=== PATIENT | male | born 1955 | race African-American/Black ===

== ENCOUNTER 2016-09-28 08:47 | Emergency (ER) | payer OTHER ==
[~2016-09-28] VITALS: Ht 185.4 cm; Wt 134.5 kg
[~2016-09-28 08:47] MED LIST: ACYC200C PO; ALLO100T PO; BENZ100 PO; FURO1TAB93 PO; HYDR-3535 PO; METF850T PO; MMW SWISH-SPIT; POTA10IN2 PO; PROT40TA PO
[2016-09-28 08:50] VITALS: BP 192/84; PULSE 84; RESP 15; TEMP 97.8; O2SAT 95
[2016-09-28] MEDS ORDERED: SODIUM CHLORIDE 0.9% FLUSH 10 ML FLUSH IV FLUSH PRN (09:30)
[2016-09-28] MEDS ORDERED: KETOROLAC TROMETHAMINE 30 MG/ML (IVP) VIAL IV PUSH ONE (10:15)
[2016-09-28] MEDS ORDERED: FURO1TAB60 PO (10:17)
[2016-09-28] MEDS ORDERED: POTA-243 PO (10:17)
[2016-09-28] MEDS ORDERED: ATOR40TA16 PO (10:17)
[2016-09-28] MEDS ORDERED: METF850T PO (10:17)
[2016-09-28] MEDS ORDERED: GABA100C4 PO ×2 (10:17)
[2016-09-28] MEDS ORDERED: ALLO100T PO (10:17)
[2016-09-28] MEDS ORDERED: PROT40TA PO (10:17)
[2016-09-28] MEDS ORDERED: HYDR-3535 PO (10:17)
[2016-09-28] MEDS ORDERED: FLUT50SP EACH NARE (10:18)
--- NOTE | 2016-09-28 11:05 | PD ---
HPI Chief Complaint: General Weakness Time Seen by Provider: 09:09 Travel History International Travel<30 days: No Contact w/Intl Traveler<30days: No Traveled to known affect area: No History of Present Illness HPI 61-year-old male arrives to the ER with a complaint of myalgias, insomnia, decreased appetite fever. He states "I feel like I was before." He has a history of CLL and was previously on chemotherapy however it was discontinued once his oncologist left the area evidently. He's had a cough. No nausea or vomiting reported. He's had no chest pain. Overall the history is somewhat vague PFSH Past Medical History Arthritis: Yes Autoimmune Disease: No Blood Disorders: No Anxiety: No Depression: No Heart Rhythm Problems: No Cancer: Yes (LEUKEMIA) Cardiovascular Problems: Yes High Cholesterol: No Chemotherapy: Yes Chest Pain: No Congestive Heart Failure: No Cerebrovascular Accident: Yes Diabetes: Yes Patient Takes Glucophage: Yes Diminished Hearing: No Endocrine: Yes Gastrointestinal Disorders: Yes (INGUINAL HERNIA) GERD: Yes Glaucoma: Yes Gout: Yes Genitourinary: No Headaches: Yes Hepatitis: Yes (HEP A OR B -- NOT SURE) Hiatal Hernia: No Hypertension: Yes Immune Disorder: No Inguinal Hernia: Yes Implanted Vascular Access Dvce: No Musculoskeletal: Yes Neurologic: No Psychiatric: No Reproductive: No Respiratory: No Immunizations Current: Yes Migraines: No 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) Radiation Therapy: No Seizures: No Thyroid Disease: No Ulcer: No Influenza Vaccination: No Past Surgical History Abdominal Surgery: Yes (HERNIA SURGERY ) AICD: No Appendectomy: Yes Body Medical Devices: LOWER BACK SCREWS Cardiac Surgery: No Cholecystectomy: Yes Ear Surgery: No Endocrine Surgery: No Eye Surgery: No Genitourinary Surgery: Yes (PENILE IMPLANT) Gynecologic Surgery: No Joint Replacement: No Neurologic Surgery: Yes (BACK SURGERY ) Pacemaker: No Prostatectomy: Yes Thoracic Surgery: No Other Surgery: Yes (RIGHT KNEE ARTHROSCOPY) Social History Alcohol Use: No Tobacco Use: No (QUIT LONG TIME AGO ) Substance Use: No Allergies-Medications (Allergen,Severity, Reaction): Coded Allergies: No Known Allergies (Verified , 09/28/16) Reported Meds & Prescriptions Reported Meds & Active Scripts Active Reported Fluticasone Nasal [place] 50 Mcg/Act Naspr 50 Mcg EACH NARE BID 50 mcg/spray Atorvastatin (Atorvastatin Calcium) 40 Mg Tab 40 Mg PO HS Gabapentin 100 Mg Cap 100 Mg PO TID Klor-Con 10 (Potassium Chloride) 10 Meq Tab 10 Meq PO DAILY Protonix (Pantoprazole Sodium) 40 Mg Tab 40 Mg PO DAILY Metformin (Metformin HCl) 850 Mg Tab 850 Mg PO DAILY With a meal Lasix (Furosemide) 40 Mg Tab 40 Mg PO DAILY Allopurinol 100 Mg Tab 100 Mg PO DAILY Lortab (Hydrocodone-Acetaminophen) 10-325 Mg Tab 1 Tab PO Q6H PRN Review of Systems Except as stated in HPI: all other systems reviewed are Neg General / Constitutional: Positive: Fever, Chills Physical Exam Narrative GENERAL: 61 yo old male pleasant no acute distress SKIN: Focused skin assessment warm/dry. HEAD: Atraumatic. Normocephalic. EYES: Pupils equal and round. No scleral icterus. No injection or drainage. ENT: No nasal bleeding or discharge. Mucous membranes pink and moist. NECK: Trachea midline. No JVD. CARDIOVASCULAR: Regular rate and rhythm. No murmur appreciated. RESPIRATORY: No accessory muscle use. Clear to auscultation. Breath sounds equal bilaterally. GASTROINTESTINAL: Abdomen soft, non-tender, nondistended. Hepatic and splenic margins not palpable. MUSCULOSKELETAL: No obvious deformities. No clubbing. No cyanosis. No edema. NEUROLOGICAL: Awake and alert. No obvious cranial nerve deficits. Motor grossly within normal limits. Normal speech. PSYCHIATRIC: Appropriate mood and affect; insight and judgment normal. Data Data Last Documented VS Vital Signs Date Time Temp Pulse Resp B/P Pulse Ox O2 Delivery O2 Flow Rate FiO2 09/28/16 12:45 100 09/28/16 08:50 97.8 84 15 192/84 Vital signs reviewed Orders Complete Blood Count With Diff (09/28/16 09:21) Iv Access Insert/Monitor (09/28/16 09:21) Ecg Monitoring (09/28/16 09:21) Oximetry (09/28/16 09:21) Sodium Chloride 0.9% Flush (Ns Flush) (09/28/16 09:30) Basic Metabolic Panel (Bmp) (09/28/16 09:21) Ketorolac Inj (Toradol Inj) (09/28/16 10:15) Labs Laboratory Tests Test 09/28/16 11:05 White Blood Count 31.5 TH/MM3 Red Blood Count 4.13 MIL/MM3 Hemoglobin 13.3 GM/DL Hematocrit 39.3 % Mean Corpuscular Volume 95.2 FL Mean Corpuscular Hemoglobin 32.2 PG Mean Corpuscular Hemoglobin 33.8 % Concent Red Cell Distribution Width 13.7 % Platelet Count 164 TH/MM3 Mean Platelet Volume 8.2 FL Neutrophils (%) (Auto) 18.9 % Lymphocytes (%) (Auto) 77.7 % Monocytes (%) (Auto) 2.8 % Eosinophils (%) (Auto) 0.1 % Basophils (%) (Auto) 0.5 % Neutrophils # (Auto) 6.0 TH/MM3 Lymphocytes # (Auto) 24.5 TH/MM3 Monocytes # (Auto) 0.9 TH/MM3 Eosinophils # (Auto) 0.0 TH/MM3 Basophils # (Auto) 0.2 TH/MM3 CBC Comment AUTO DIFF Differential Total Cells 100 Counted Neutrophils % (Manual) 20 % Lymphocytes % 78 % Monocytes % 1 % Eosinophils % 1 % Neutrophils # (Manual) 6.3 TH/MM3 Differential Comment FINAL DIFF MANUAL Platelet Estimate NORMAL Platelet Morphology Comment NORMAL Red Cell Morphology Comment NORMAL Sodium Level 138 MEQ/L Potassium Level 3.9 MEQ/L Chloride Level 104 MEQ/L Carbon Dioxide Level 28.2 MEQ/L Anion Gap 6 MEQ/L Blood Urea Nitrogen 11 MG/DL Creatinine 1.03 MG/DL Estimat Glomerular Filtration 89 ML/MIN Rate Random Glucose 75 MG/DL Calcium Level 9.3 MG/DL [facility] Medical Decision Making Medical Screen Exam Complete: Yes Emergency Medical Condition: Yes Medical Record Reviewed: Yes Differential Diagnosis CLL, electrolyte imbalance, anemia Narrative Course CBC & BMP Diagram 09/28/16 11:05 The patient is resting comfortably and feels better, is alert and in no distress. The patients results and examination findings were discussed. The repeat examination is unremarkable and benign. The history, exam, diagnostic testing, and current condition do not suggest any significant pathology to warrant further testing, continued ED treatment, admission, or surgical evaluation at this point. The vital signs have been stable. The patient does not have uncontrollable pain, intractable vomiting, or other significant symptoms. The patient's condition is stable and appropriate for discharge. The patient will pursue further outpatient evaluation with a primary care physician or other designated or consulting physician as indicated in the discharge instructions. The patient expressed understanding and was agreeable with this plan. Diagnosis Primary Impression: CLL (chronic lymphocytic leukemia) Additional Impressions: Generalized weakness Myalgia Referrals: Oncologist 2 days Additional Instructions: You have a choice when it comes to health care, and we are glad that you chose [facility]. Hopefully, we have met your expectations on today's visit. You are welcome to return to [facility] at any time, as we are committed to meeting the health care needs of our community. Med/Other Pt SpecificInfo: No Change to Meds Disposition: 01 DISCHARGE HOME Condition: Pino Braun MD Sep 28, 2016 11:05
[2016-09-28 11:26] LABS: BASOPHIL # 0.2 TH/MM3 (0-0.2); BASOPHIL % 0.5 % (0.0-2.0); EOSINOPHIL % 0.1 % (0.0-4.0); HEMATOCRIT 39.3 % (39.0-51.0); LYMPH % 77.7 % (9.0-44.0); LYMPHOCYTE # 24.5 TH/MM3 (1.0-4.8); MEAN CELL VOLUME 95.2 FL (80.0-100.0); MEAN CORPUSCULAR HEMOGLOBIN 32.2 PG (27.0-34.0); MEAN CORPUSCULAR HGB CONC 33.8 % (32.0-36.0); MONO % 2.8 % (0.0-8.0); NEUT % 18.9 % (16.0-70.0); PLATELET COUNT 164 TH/MM3 (150-450); RED BLOOD COUNT 4.13 MIL/MM3 (4.50-5.90); RED CELL DISTRIBUTION WIDTH 13.7 % (11.6-17.2); WHITE BLOOD COUNT 31.5 TH/MM3 (4.0-11.0)
[2016-09-28 11:27] LABS: HEMO FLAGS AUTO DIFF
[2016-09-28 11:47] LABS: BICARBONATE 28.2 MEQ/L (21.0-32.0); POTASSIUM 3.9 MEQ/L (3.5-5.1)
[2016-09-28 11:59] LABS: EOSINOPHILS 1 % (0-4); NEUTROPHIL # MANUAL DIFF 6.3 TH/MM3 (1.8-7.7); PLATELET ESTIMATE SMEAR NORMAL (NORMAL); PLATELET MORPHOLOGY NORMAL (NORMAL); POLYS (SEG NEUTROPHILS) 20 % (16-70); SCAN/DIFF FINAL DIFF MANUAL; WBC DIFF SAMPLE 100
== END 2016-09-28 12:50 | disposition home or self-care (01) ==
LOC: NEPC 08:47
DX: R50.9 Fever, unspecified (principal); E11.9 Type 2 diabetes mellitus without complications; M19.90 Unspecified osteoarthritis, unspecified site; I10 Essential (primary) hypertension; C95.91 Leukemia, unspecified, in remission; Z79.4 Long term (current) use of insulin; Z86.73 Personal history of transient ischemic attack (TIA), and cerebral infarction without residual deficits
CPT/HCPCS: 80048; 85007; 85027; 96374; 99284; J1885

== ENCOUNTER 2017-05-08 18:06 | Emergency (ER) | payer OTHER ==
[~2017-05-08] VITALS: Ht 185.4 cm; Wt 130.0 kg
[~2017-05-08 18:06] MED LIST changes: -ACYC200C PO; +ATOR40TA16 PO; -BENZ100 PO; +FLUT50SP EACH NARE; +FURO1TAB60 PO; -FURO1TAB93 PO; +GABA100C4 PO; +KLOR10TA PO; -MMW SWISH-SPIT; -POTA10IN2 PO
[2017-05-08 18:08] VITALS: BP 154/84; PULSE 107; RESP 16; TEMP 99.2; O2SAT 99
--- NOTE | 2017-05-08 19:09 | PD ---
HPI Chief Complaint: Cold / Flu Symptoms Time Seen by Provider: 18:58 Travel History International Travel<30 days: No Contact w/Intl Traveler<30days: No Traveled to known affect area: No History of Present Illness HPI 61-year-old male presents to emergency department complaining of cough cold symptoms for approximately 1-2 days. States that he has felt feverish and had a decreased appetite secondary to his upper respiratory symptoms. Patient states he has also developed a mild headache with decreased sleep because of his symptoms. Patient states that he does see a pain management doctor for his chronic low back pain, has diabetes, and has been treated for leukemia. His oncologist is Dr. Aguilar. He is due to follow-up with his primary care physician this week. Patient states that he feels a little run down and has an upset stomach secondary to take his medication without eating. States he has had some nonbloody diarrhea. Denies nausea or vomiting. Patient has a nonproductive cough. Denies chest pain, shortness of breath, abdominal pain, or urinary discomfort. PFSH Past Medical History Arthritis: Yes Autoimmune Disease: No Blood Disorders: No Anxiety: No Depression: No Heart Rhythm Problems: No Cancer: Yes (LEUKEMIA) Cardiovascular Problems: Yes High Cholesterol: No Chemotherapy: Yes Chest Pain: No Congestive Heart Failure: No Cerebrovascular Accident: Yes Diabetes: Yes Diminished Hearing: No Endocrine: Yes Gastrointestinal Disorders: Yes (INGUINAL HERNIA) GERD: Yes Glaucoma: Yes Gout: Yes Genitourinary: No Headaches: Yes Hepatitis: Yes (HEP A OR B -- NOT SURE) Hiatal Hernia: No Hypertension: Yes Immune Disorder: No Inguinal Hernia: Yes Implanted Vascular Access Dvce: No Musculoskeletal: Yes Neurologic: No Psychiatric: No Reproductive: No Respiratory: No Immunizations Current: Yes Migraines: No 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) Radiation Therapy: No Seizures: No Thyroid Disease: No Ulcer: No Past Surgical History Abdominal Surgery: Yes (HERNIA SURGERY ) AICD: No Appendectomy: Yes Body Medical Devices: LOWER BACK SCREWS Cardiac Surgery: No Cholecystectomy: Yes Ear Surgery: No Endocrine Surgery: No Eye Surgery: No Genitourinary Surgery: Yes (PENILE IMPLANT) Gynecologic Surgery: No Joint Replacement: No Neurologic Surgery: Yes (BACK SURGERY ) Pacemaker: No Prostatectomy: Yes Thoracic Surgery: No Other Surgery: Yes (RIGHT KNEE ARTHROSCOPY) Social History Alcohol Use: No Tobacco Use: No (QUIT LONG TIME AGO ) Substance Use: No Allergies-Medications (Allergen,Severity, Reaction): Coded Allergies: No Known Allergies (Verified , 09/28/16) Reported Meds & Prescriptions Reported Meds & Active Scripts Active Reported Fluticasone Nasal [place] 50 Mcg/Act Naspr 50 Mcg EACH NARE BID 50 mcg/spray Atorvastatin (Atorvastatin Calcium) 40 Mg Tab 40 Mg PO HS Gabapentin 100 Mg Cap 100 Mg PO TID Klor-Con 10 (Potassium Chloride) 10 Meq Tab 10 Meq PO DAILY Protonix (Pantoprazole Sodium) 40 Mg Tab 40 Mg PO DAILY Metformin (Metformin HCl) 850 Mg Tab 850 Mg PO DAILY With a meal Lasix (Furosemide) 40 Mg Tab 40 Mg PO DAILY Allopurinol 100 Mg Tab 100 Mg PO DAILY Lortab (Hydrocodone-Acetaminophen) 10-325 Mg Tab 1 Tab PO Q6H PRN Review of Systems Except as stated in HPI: all other systems reviewed are Neg Physical Exam Narrative GENERAL: Well-nourished, well-developed patient. SKIN: Focused skin assessment warm/dry. HEAD: Normocephalic. EYES: No scleral icterus. No injection or drainage. THROAT: No pharyngeal injection. Questionable exudates. Tonsillar hypertrophy present(patient states this is chronic.). Airway is patent. NECK: Supple, trachea midline. No JVD or lymphadenopathy. CARDIOVASCULAR: Regular rate and rhythm without murmurs, gallops, or rubs. RESPIRATORY: Breath sounds equal bilaterally. No accessory muscle use. GASTROINTESTINAL: Abdomen soft, non-tender, nondistended. MUSCULOSKELETAL: No cyanosis, or edema. BACK: Nontender without obvious deformity. No CVA tenderness. Data Data Last Documented VS Vital Signs Date Time Temp Pulse Resp B/P (MAP) Pulse Ox O2 Delivery O2 Flow Rate FiO2 05/08/17 22:45 05/08/17 19:49 98 Room Air 05/08/17 19:47 89 16 05/08/17 18:08 99.2 Orders Orders Influenzae A/B Antigen (05/08/17 19:05) Group A Rapid Strep Screen (05/08/17 19:05) Sodium Chlor 0.9% 1000 Ml Inj (Ns 1000 M (05/08/17 19:15) Strep Culture (Group A) (05/08/17 19:45) Ed Discharge Order (05/08/17 21:29) MDM Medical Decision Making Medical Screen Exam Complete: Yes Emergency Medical Condition: Yes Differential Diagnosis Viral syndrome versus upper respiratory infection allergic rhinitis Narrative Course 61-year-old male presents to emergency department complaining of cough cold symptoms for approximately 1-2 days. States that he has felt feverish and had a decreased appetite secondary to his upper respiratory symptoms. Patient states he has also developed a mild headache with decreased sleep because of his symptoms. Patient states that he feels a little run down and has an upset stomach secondary to take his medication without eating. States he has had some nonbloody diarrhea but this is not out of the ordinary for patient. Denies nausea or vomiting. Patient has a nonproductive cough. Denies chest pain , shortness of breath, abdominal pain, or urinary discomfort. Patient states that he does see a pain management doctor for his chronic low back pain, has diabetes, and has been treated for leukemia. His oncologist is Dr. Aguilar. He is due to follow-up with his primary care physician this week. Vital signs stable. Physical exam- tonsillar hypertrophy is apparently normal for patient, no exudate or injection of pharynx. no lymphadenopathy. lungs clear. Abd SNT. Essentially unremarkable. An extended amount of time was required for IVF administration and IV access. Patient received a 1 L IV NS challenge for decreased oral intake and feeling fatigued. Encouraged pt to drink water throughout the stay as well. POC Glucose 116. PO challenge successful. Pt feels better, will be discharged. Advised to use tylenol or motrin for headache symptoms. Benedryl for allergy or sleep disturbances. Healthy diabetic diet with plenty of fluid intake. Strongly advised pt to follow up with PCP and Oncologist within 3 days. Diagnosis Primary Impression: Viral syndrome Referrals: Primary Care Physician Additional Instructions: Take Benadryl at night for sleep and your symptoms. Continue to hydrate and have a nutritious diet. Follow-up with her primary care physician within 2-3 days. If her symptoms persist or worsen return to the emergency department. Disposition: 01 DISCHARGE HOME Condition: Stable Inés Venegas May 08, 2017 19:09
[2017-05-08] MEDS ORDERED: SODIUM CHLOR 0.9% 1000 ML INJ 1,000 ML IV ONE (19:15)
[2017-05-08 19:47] VITALS: BP 117/72; PULSE 89; RESP 16; O2SAT 96
== END 2017-05-08 22:55 | disposition home or self-care (01) ==
LOC: NEPD 18:06
DX: B34.9 Viral infection, unspecified (principal); M19.90 Unspecified osteoarthritis, unspecified site; E11.9 Type 2 diabetes mellitus without complications; K21.9 Gastro-esophageal reflux disease without esophagitis; M10.9 Gout, unspecified; I10 Essential (primary) hypertension; Z87.19 Personal history of other diseases of the digestive system; Z79.899 Other long term (current) drug therapy; Z86.73 Personal history of transient ischemic attack (TIA), and cerebral infarction without residual deficits
CPT/HCPCS: 87081; 87804; 87880; 96360; 96361; 99284; J7030

== ENCOUNTER 2017-09-01 19:51 | Emergency (ER) | payer OTHER ==
[2017-09-01 20:01] VITALS: BP 186/83; PULSE 97; RESP 18; TEMP 98.1; O2SAT 97
--- NOTE | 2017-09-01 22:11 | PD ---
HPI Chief Complaint: Diabetic Time Seen by Provider: 20:00 Travel History International Travel<30 days: No Contact w/Intl Traveler<30days: No Traveled to known affect area: No PFSH Past Medical History Arthritis: Yes Autoimmune Disease: No Blood Disorders: No Anxiety: No Depression: No Heart Rhythm Problems: No Cancer: Yes (LEUKEMIA) Cardiovascular Problems: Yes High Cholesterol: No Chemotherapy: Yes Chest Pain: No Congestive Heart Failure: No Cerebrovascular Accident: Yes Diabetes: Yes Diminished Hearing: No Endocrine: Yes Gastrointestinal Disorders: Yes (INGUINAL HERNIA) GERD: Yes Glaucoma: Yes Gout: Yes Genitourinary: No Headaches: Yes Hepatitis: Yes (HEP A OR B -- NOT SURE) Hiatal Hernia: No Hypertension: Yes Immune Disorder: No Inguinal Hernia: Yes Implanted Vascular Access Dvce: No Musculoskeletal: Yes Neurologic: No Psychiatric: No Reproductive: No Respiratory: No Immunizations Current: Yes Migraines: No 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) Radiation Therapy: No Seizures: No Thyroid Disease: No Ulcer: No Past Surgical History Abdominal Surgery: Yes (HERNIA SURGERY ) AICD: No Appendectomy: Yes Body Medical Devices: LOWER BACK SCREWS Cardiac Surgery: No Cholecystectomy: Yes Ear Surgery: No Endocrine Surgery: No Eye Surgery: No Genitourinary Surgery: Yes (PENILE IMPLANT) Gynecologic Surgery: No Joint Replacement: No Neurologic Surgery: Yes (BACK SURGERY ) Pacemaker: No Prostatectomy: Yes Thoracic Surgery: No Other Surgery: Yes (RIGHT KNEE ARTHROSCOPY) Social History Alcohol Use: No Tobacco Use: No (QUIT LONG TIME AGO ) Substance Use: No Allergies-Medications (Allergen,Severity, Reaction): Coded Allergies: No Known Allergies (Verified , 09/28/16) Reported Meds & Prescriptions Reported Meds & Active Scripts Active Reported Glipizide 5 Mg Tab 5 Mg PO BID Take 30 minutes before a meal Hydrocodone-Acetaminophen 10-325 mg Tab 1 Tab PO Q6H PRN Fluticasone Nasal [place] 50 Mcg/Act Naspr 50 Mcg EACH NARE BID 50 mcg/spray Atorvastatin (Atorvastatin Calcium) 40 Mg Tab 40 Mg PO HS Gabapentin 100 Mg Cap 100 Mg PO TID Klor-Con 10 (Potassium Chloride) 10 Meq Tab 10 Meq PO DAILY Protonix (Pantoprazole Sodium) 40 Mg Tab 40 Mg PO DAILY Metformin (Metformin HCl) 850 Mg Tab 850 Mg PO DAILY With a meal Lasix (Furosemide) 40 Mg Tab 40 Mg PO DAILY Allopurinol 100 Mg Tab 100 Mg PO DAILY Data Data Last Documented VS Vital Signs Date Time Temp Pulse Resp B/P (MAP) Pulse Ox O2 Delivery O2 Flow Rate FiO2 09/01/17 20:01 98.1 97 18 186/83 (117) 97 Orders Orders Blood Glucose (09/01/17 20:03) Electrocardiogram (09/02/17 02:36) Complete Blood Count With Diff (09/02/17 02:36) Comprehensive Metabolic Panel (09/02/17 02:36) Creatine Kinase (Cpk) (09/02/17 02:36) Ckmb (Isoenzyme) Profile (09/02/17 02:36) Troponin I (09/02/17 02:36) B-Type Natriuretic Peptide (09/02/17 02:36) Prothrombin Time / Inr (Pt) (09/02/17 02:36) Act Partial Throm Time (Ptt) (09/02/17 02:36) Lipase (09/02/17 02:36) Urinalysis - C+S If Indicated (09/02/17 02:36) Thyroid Stimulating Hormone (09/02/17 02:36) Chest, Single Ap (09/02/17 02:36) Iv Access Insert/Monitor (09/02/17 02:36) Ecg Monitoring (09/02/17 02:36) Oximetry (09/02/17 02:36) Acetamin-Hydrocod 325-5 Mg ([place] 5-325 (09/02/17 03:30) CKMB (09/02/17 02:45) CKMB% (09/02/17 02:45) Labs Laboratory Tests Test 09/02/17 02:45 09/02/17 03:00 White Blood Count 76.5 TH/MM3 Red Blood Count 4.21 MIL/MM3 Hemoglobin 13.3 GM/DL Hematocrit 40.9 % Mean Corpuscular Volume 97.1 FL Mean Corpuscular Hemoglobin 31.5 PG Mean Corpuscular Hemoglobin Concent 32.4 % Red Cell Distribution Width 13.7 % Platelet Count 184 TH/MM3 Mean Platelet Volume 8.3 FL Neutrophils (%) (Auto) 8.5 % Lymphocytes (%) (Auto) 89.2 % Monocytes (%) (Auto) 1.8 % Eosinophils (%) (Auto) 0.2 % Basophils (%) (Auto) 0.3 % Neutrophils # (Auto) 6.5 TH/MM3 Lymphocytes # (Auto) 68.3 TH/MM3 Monocytes # (Auto) 1.4 TH/MM3 Eosinophils # (Auto) 0.1 TH/MM3 Basophils # (Auto) 0.2 TH/MM3 CBC Comment AUTO DIFF Differential Total Cells Counted 100 Neutrophils % (Manual) 10 % Lymphocytes % 89 % Eosinophils % 1 % Neutrophils # (Manual) 7.7 TH/MM3 Differential Comment FINAL DIFF MANUAL Atypical Lymphocytes % Smudge Cells PRESENT Platelet Estimate NORMAL Platelet Morphology Comment NORMAL Red Cell Morphology Comment NORMAL Prothrombin Time 10.3 SEC Prothromb Time International Ratio 1.0 RATIO Activated Partial Thromboplast Time 25.0 SEC Blood Urea Nitrogen 12 MG/DL Creatinine 0.91 MG/DL Random Glucose 102 MG/DL Total Protein 7.8 GM/DL Albumin 4.0 GM/DL Calcium Level 8.8 MG/DL Alkaline Phosphatase 81 U/L Aspartate Amino Transf (AST/SGOT) 15 U/L Alanine Aminotransferase (ALT/SGPT) 18 U/L Total Bilirubin 0.5 MG/DL Sodium Level 142 MEQ/L Potassium Level 4.4 MEQ/L Chloride Level 105 MEQ/L Carbon Dioxide Level 28.2 MEQ/L Anion Gap 9 MEQ/L Estimat Glomerular Filtration Rate 103 ML/MIN Total Creatine Kinase 354 U/L Creatine Kinase MB LESS THAN 0.5 NG/ML Creatine Kinase MB % 0.1 % Troponin I LESS THAN 0.02 NG/ML B-Type Natriuretic Peptide LESS THAN 2 PG/ML Lipase 371 U/L Thyroid Stimulating Hormone 3rd Gen 1.310 uIU/ML Urine Color LIGHT-YELLOW Urine Turbidity CLEAR Urine pH 7.5 Urine Specific [place] 1.010 Urine Protein NEG mg/dL Urine Glucose (UA) NEG mg/dL Urine Ketones NEG mg/dL Urine Occult Blood NEG Urine Nitrite NEG Urine Bilirubin NEG Urine Urobilinogen LESS THAN 2.0 MG/DL Urine Leukocyte Esterase TRACE Urine RBC LESS THAN 1 /hpf Urine WBC 2 /hpf Urine Squamous Epithelial Cells <1 /hpf Microscopic Urinalysis Comment CULT NOT INDICATED Barb Ashford Sep 01, 2017 22:11
--- NOTE | 2017-09-02 02:38 | PD ---
HPI Chief Complaint: Diabetic Time Seen by Provider: 02:33 Travel History International Travel<30 days: No Contact w/Intl Traveler<30days: No Traveled to known affect area: No History of Present Illness HPI The patient is a 62 year old male who presents to the [facility] emergency department with a history of lower than usual blood sugars throughout the day today. He reports that in spite of eating various sweet substances his sugar continued to go up shortly and then fall again. He reports that his blood sugar was as low as 76. He reports that he is on glipizide and metformin. His primary care physician is Dr. Sanchez. He denies any recent changes in his medication regimen. He reports that he is also followed by Dr. Aguilar, a local oncologist for chronic lymphocytic leukemia. He is not on any chemotherapy currently for this. He reports that he did have a decreased appetite this evening. He reports that he did eat dinner. The patient reports that he gets symptomatic when his blood sugar drops below 100. He reports that he feels shaky and nauseated. On review of systems, he denies having any recent fevers, cough or congestion, cough, congestion, neck pain, chest pain, shortness of breath, abdominal pain, vomiting, diarrhea, urinary symptoms, or other neurologic symptoms. The patient incidentally also reports having worsening lower extremity edema over the last 2 days. He denies having any calf pain or erythema. He denies having any prior history of DVT or PE. [facility] Past Medical History Narrative Medical The patient's past medical history is significant for COPD, diabetes mellitus, acid reflux, gout, hyperlipidemia, hypertension, chronic kidney disease, history of chronic lymphocytic leukemia, obesity. Arthritis: Yes Autoimmune Disease: No Blood Disorders: No Anxiety: No Depression: No Heart Rhythm Problems: No Cancer: Yes (LEUKEMIA) Cardiovascular Problems: Yes High Cholesterol: No Chemotherapy: Yes Chest Pain: No Congestive Heart Failure: No Cerebrovascular Accident: Yes Diabetes: Yes Diminished Hearing: No Endocrine: Yes Gastrointestinal Disorders: Yes (INGUINAL HERNIA) GERD: Yes Glaucoma: Yes Gout: Yes Genitourinary: No Headaches: Yes Hepatitis: Yes (HEP A OR B -- NOT SURE) Hiatal Hernia: No Hypertension: Yes Immune Disorder: No Inguinal Hernia: Yes Implanted Vascular Access Dvce: No Musculoskeletal: Yes Neurologic: No Psychiatric: No Reproductive: No Respiratory: No Immunizations Current: Yes Migraines: No 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) Radiation Therapy: No Seizures: No Thyroid Disease: No Ulcer: No Past Surgical History Narrative Surgical The patient's past surgical history is significant for an appendectomy, back surgery, cholecystectomy, hernia repair, penile implant, port placement, colonoscopy. Abdominal Surgery: Yes (HERNIA SURGERY ) AICD: No Appendectomy: Yes Body Medical Devices: LOWER BACK SCREWS Cardiac Surgery: No Cholecystectomy: Yes Ear Surgery: No Endocrine Surgery: No Eye Surgery: No Genitourinary Surgery: Yes (PENILE IMPLANT) Gynecologic Surgery: No Joint Replacement: No Neurologic Surgery: Yes (BACK SURGERY ) Pacemaker: No Prostatectomy: Yes Thoracic Surgery: No Other Surgery: Yes (RIGHT KNEE ARTHROSCOPY) Social History Alcohol Use: No Tobacco Use: No (QUIT LONG TIME AGO ) Substance Use: No Allergies-Medications (Allergen,Severity, Reaction): Coded Allergies: No Known Allergies (Verified , 09/28/16) Reported Meds & Prescriptions Reported Meds & Active Scripts Active Reported Glipizide 5 Mg Tab 5 Mg PO BID Take 30 minutes before a meal Hydrocodone-Acetaminophen 10-325 mg Tab 1 Tab PO Q6H PRN Fluticasone Nasal [place] 50 Mcg/Act Naspr 50 Mcg EACH NARE BID 50 mcg/spray Atorvastatin (Atorvastatin Calcium) 40 Mg Tab 40 Mg PO HS Gabapentin 100 Mg Cap 100 Mg PO TID Klor-Con 10 (Potassium Chloride) 10 Meq Tab 10 Meq PO DAILY Protonix (Pantoprazole Sodium) 40 Mg Tab 40 Mg PO DAILY Metformin (Metformin HCl) 850 Mg Tab 850 Mg PO DAILY With a meal Lasix (Furosemide) 40 Mg Tab 40 Mg PO DAILY Allopurinol 100 Mg Tab 100 Mg PO DAILY Review of Systems Except as stated in HPI: all other systems reviewed are Neg General / Constitutional: No: Fever Eyes: No: Visual changes HENT: No: Headaches Cardiovascular: No: Chest Pain or Discomfort Respiratory: No: Shortness of Breath Gastrointestinal: Positive: Nausea, Loss of Appetite, No: Vomiting, Diarrhea, Abdominal Pain Genitourinary: No: Dysuria Musculoskeletal: No: Pain Skin: No Rash Neurologic: Positive: Weakness (Generalized weakness), No: Focal Abnormalities , Change in Mentation, Slurred Speech, Sensory Disturbance Psychiatric: No: Depression Endocrine: No: Polydipsia Hematologic/Lymphatic: No: Easy Bruising Physical Exam Narrative General: The patient is a well-developed well-nourished male in no acute distress. Head and Neck exam: Head is normocephalic atraumatic. Eyes: EOMI, pupils are equal round and reactive to light. Nose: Midline septum with pink mucous membranes Mouth: Dentition unremarkable. Moist mucus membranes. Posterior oropharynx is not erythematous. No tonsillar hypertrophy. Uvula midline. Airway patent. Neck: No palpable lymphadenopathy. No nuchal rigidity. No thyromegaly. Cardiovascular: Regular rate and rhythm without murmurs, gallops, or rubs. Lungs: Clear to auscultation bilaterally. No wheezes, rhonchi, or rales. Abdomen: Soft, without tenderness to palpation in all 4 quadrants of the abdomen. No guarding, rebound, or rigidity. Normal bowel sounds are audible. No tenderness on palpation of McBurney's point. Negative Suarez sign. Extremities: No clubbing or cyanosis. The patient has trace pedal edema bilateral lower extremities. No calf tenderness on palpation. Negative Homans sign. No palpable cords. 2+ pulses in all 4 extremities. Back: No spinous process tenderness to palpation. No costovertebral angle tenderness to palpation. Neurologic Exam: Grossly nonfocal. Skin Exam: No rash noted. Intact skin that is warm and dry. Data Data Last Documented VS Vital Signs Date Time Temp Pulse Resp B/P (MAP) Pulse Ox O2 Delivery O2 Flow Rate FiO2 09/01/17 20:01 98.1 97 18 186/83 (117) 97 Orders Orders Blood Glucose (09/01/17 20:03) Electrocardiogram (09/02/17 02:36) Complete Blood Count With Diff (09/02/17 02:36) Comprehensive Metabolic Panel (09/02/17 02:36) Creatine Kinase (Cpk) (09/02/17 02:36) Ckmb (Isoenzyme) Profile (09/02/17 02:36) Troponin I (09/02/17 02:36) B-Type Natriuretic Peptide (09/02/17 02:36) Prothrombin Time / Inr (Pt) (09/02/17 02:36) Act Partial Throm Time (Ptt) (09/02/17 02:36) Lipase (09/02/17 02:36) Urinalysis - C+S If Indicated (09/02/17 02:36) Thyroid Stimulating Hormone (09/02/17 02:36) Chest, Single Ap (09/02/17 02:36) Iv Access Insert/Monitor (09/02/17 02:36) Ecg Monitoring (09/02/17 02:36) Oximetry (09/02/17 02:36) Acetamin-Hydrocod 325-5 Mg ([place] 5-325 (09/02/17 03:30) CKMB (09/02/17 02:45) CKMB% (09/02/17 02:45) Labs Laboratory Tests Test 09/02/17 02:45 09/02/17 03:00 White Blood Count 76.5 TH/MM3 Red Blood Count 4.21 MIL/MM3 Hemoglobin 13.3 GM/DL Hematocrit 40.9 % Mean Corpuscular Volume 97.1 FL Mean Corpuscular Hemoglobin 31.5 PG Mean Corpuscular Hemoglobin Concent 32.4 % Red Cell Distribution Width 13.7 % Platelet Count 184 TH/MM3 Mean Platelet Volume 8.3 FL Neutrophils (%) (Auto) 8.5 % Lymphocytes (%) (Auto) 89.2 % Monocytes (%) (Auto) 1.8 % Eosinophils (%) (Auto) 0.2 % Basophils (%) (Auto) 0.3 % Neutrophils # (Auto) 6.5 TH/MM3 Lymphocytes # (Auto) 68.3 TH/MM3 Monocytes # (Auto) 1.4 TH/MM3 Eosinophils # (Auto) 0.1 TH/MM3 Basophils # (Auto) 0.2 TH/MM3 CBC Comment AUTO DIFF Differential Total Cells Counted 100 Neutrophils % (Manual) 10 % Lymphocytes % 89 % Eosinophils % 1 % Neutrophils # (Manual) 7.7 TH/MM3 Differential Comment FINAL DIFF MANUAL Atypical Lymphocytes % Smudge Cells PRESENT Platelet Estimate NORMAL Platelet Morphology Comment NORMAL Red Cell Morphology Comment NORMAL Prothrombin Time 10.3 SEC Prothromb Time International Ratio 1.0 RATIO Activated Partial Thromboplast Time 25.0 SEC Blood Urea Nitrogen 12 MG/DL Creatinine 0.91 MG/DL Random Glucose 102 MG/DL Total Protein 7.8 GM/DL Albumin 4.0 GM/DL Calcium Level 8.8 MG/DL Alkaline Phosphatase 81 U/L Aspartate Amino Transf (AST/SGOT) 15 U/L Alanine Aminotransferase (ALT/SGPT) 18 U/L Total Bilirubin 0.5 MG/DL Sodium Level 142 MEQ/L Potassium Level 4.4 MEQ/L Chloride Level 105 MEQ/L Carbon Dioxide Level 28.2 MEQ/L Anion Gap 9 MEQ/L Estimat Glomerular Filtration Rate 103 ML/MIN Total Creatine Kinase 354 U/L Creatine Kinase MB LESS THAN 0.5 NG/ML Creatine Kinase MB % 0.1 % Troponin I LESS THAN 0.02 NG/ML B-Type Natriuretic Peptide LESS THAN 2 PG/ML Lipase 371 U/L Thyroid Stimulating Hormone 3rd Gen 1.310 uIU/ML Urine Color LIGHT-YELLOW Urine Turbidity CLEAR Urine pH 7.5 Urine Specific [place] 1.010 Urine Protein NEG mg/dL Urine Glucose (UA) NEG mg/dL Urine Ketones NEG mg/dL Urine Occult Blood NEG Urine Nitrite NEG Urine Bilirubin NEG Urine Urobilinogen LESS THAN 2.0 MG/DL Urine Leukocyte Esterase TRACE Urine RBC LESS THAN 1 /hpf Urine WBC 2 /hpf Urine Squamous Epithelial Cells <1 /hpf Microscopic Urinalysis Comment CULT NOT INDICATED MDM Medical Decision Making Medical Screen Exam Complete: Yes Emergency Medical Condition: Yes Medical Record Reviewed: Yes Interpretation(s) Last Impressions Chest X-Ray 09/02/17 0236 Signed Impressions: Service Date/Time: Saturday, September 02, 2017 02:47 - CONCLUSION: The lungs are clear. Mark Gallegos MD Differential Diagnosis Poor p.o. intake causing hypoglycemia, versus increased sensitivity to glipizide. Narrative Course During the course of the patient's emergency department visit, the patient's history, examination, and differential diagnosis were reviewed with the patient. The patient was placed on a quality assurance monitor with oximetry and frequent blood pressure monitoring. The patient had IV access obtained and blood work sent for analysis. The patient had a EKG done on arrival. The patient's EKG shows a sinus rhythm heart rate of 74, QRS duration is 100 ms, QTC 400 ms. The patient was initially provided Lortab 5 mg p.o. 1 as the patient reports that he last took his Lortab 10 hours ago and takes it every 6-8 hours for chronic back pain. The patient's laboratory studies were reviewed and remarkable for a white count of 76.5 which is comparable to a prior white count of 77.6 on August 25, hemoglobin 13.3, platelets 184 with 10 neutrophils, 89 lymphocytes. CMP is unremarkable. Cardiac enzymes within normal limits. BNP is less than 2. TSH within normal limits. Urinalysis is unremarkable. Radiology studies were reviewed and remarkable for a chest x-ray that shows no acute cardiopulmonary disease. Regarding the patient's lower extremity edema, the patient has a reported history of poorly sleeping over the last month. We did discuss the possibility of sleep apnea causing his difficulty sleeping and lower extremity edema. I did recommend that he follow-up with his primary care physician to discuss this further and consider sleep testing. Regarding the patient's hypoglycemia he was instructed regarding how to treat it. He was instructed regarding eating small frequent meals. He was instructed to call his primary care physician in the morning to discuss this emergency department visit and consideration of discontinuing his glipizide . The patient is resting comfortably and feels better, is alert and in no distress. The patient's results and examination findings were discussed with the patient. The repeat examination is unremarkable and benign. The history, exam, diagnostic testing, and current condition do not suggest any significant pathology to warrant further testing, continued ED treatment, admission, or surgical evaluation at this point. The vital signs have been stable. The patient does not have uncontrollable pain, intractable vomiting, or other significant symptoms. The patient's condition is stable and appropriate for discharge. The patient will pursue further outpatient evaluation with a primary care physician or other designated or consulting physician as indicated in the discharge instructions. The patient expressed understanding and was agreeable with this plan. Diagnosis Primary Impression: Hypoglycemia Referrals: Primary Care Physician 1 day Patient Instructions: General Instructions, Hypoglycemia in a Person with Diabetes (ED) Additional Instructions: The patient is instructed to call his primary care physician in the morning regarding his low blood sugars earlier today. He was instructed that the glipizide that he is on for his diabetes may need to be discontinued or decreased in dose as this can cause hypoglycemia. The patient is instructed that when he has symptoms of hypoglycemia he should drink orange juice or another sugary drink, followed by peanut butter and crackers to help sustain the blood sugar at a normal level for longer. Disposition: 01 DISCHARGE HOME Condition: Stable Ivelisse Dial MD Sep 02, 2017 02:38
--- NOTE | 2017-09-02 03:07 | RADRPT ---
EXAM DATE/TIME: 09/02/2017 02:47 [facility] COMPARISON: No previous studies available for comparison. INDICATIONS : Cough. MEDICAL HISTORY : Diabetes mellitus type 2. Gastroesophageal reflux disease. Pancreatitis.Inguinal hernia, Leukemia, CV A SURGICAL HISTORY : Prostatectomy. Appendectomy. ENCOUNTER: Initial ACUITY: 1 day PAIN SCORE: 0/10 LOCATION: Bilateral chest FINDINGS: A single view of the chest demonstrates the lungs to be symmetrically aerated without evidence of mas s, infiltrate or effusion. The cardiomediastinal contours are unremarkable. Osseous structures are intact. Kylfph-m-Eduy catheter tip at the caval atrial junction. CONCLUSION: The lungs are clear. Mark Gallegos MD on September 02, 2017 at 3:00 Board Certified Radiologist. This report was verified electronically.
[2017-09-02] MEDS ORDERED: GLIP5TAB8 PO (03:13)
[2017-09-02] MEDS ORDERED: HYDR-3583 PO (03:13)
[2017-09-02 03:20] LABS: BILIRUBIN, URINE NEG (NEG); BLOOD, URINE NEG (NEG); GLUCOSE,URINE NEG (NEG); KETONE, URINE NEG (NEG); NITRITE,URINE NEG (NEG); PH, URINE 7.5 (5.0-8.5); SQUAMOUS EPITHELIAL CELL URINE <1 /hpf (0-5); URINE COLOR LIGHT-YELLOW (YELLW/STRAW); URINE LEUKOCYTE ESTERASE TRACE (NEG)
[2017-09-02 03:20] LABS: AUTOMATED NEUTROPHIL # 6.5 TH/MM3 (1.8-7.7); BASOPHIL # 0.2 TH/MM3 (0-0.2); BASOPHIL % 0.3 % (0.0-2.0); EOSINOPHIL # 0.1 TH/MM3 (0-0.4); EOSINOPHIL % 0.2 % (0.0-4.0); HEMATOCRIT 40.9 % (39.0-51.0); HEMOGLOBIN 13.3 GM/DL (13.0-17.0); LYMPH % 89.2 % (9.0-44.0); LYMPHOCYTE # 68.3 TH/MM3 (1.0-4.8); MEAN CELL VOLUME 97.1 FL (80.0-100.0); MEAN CORPUSCULAR HEMOGLOBIN 31.5 PG (27.0-34.0); MEAN CORPUSCULAR HGB CONC 32.4 % (32.0-36.0); MEAN PLATELET VOLUME 8.3 FL (7.0-11.0); MONO % 1.8 % (0.0-8.0); MONOCYTE # 1.4 TH/MM3 (0-0.9); NEUT % 8.5 % (16.0-70.0); PLATELET COUNT 184 TH/MM3 (150-450); RED BLOOD COUNT 4.21 MIL/MM3 (4.50-5.90); RED CELL DISTRIBUTION WIDTH 13.7 % (11.6-17.2); WHITE BLOOD COUNT 76.5 TH/MM3 (4.0-11.0)
[2017-09-02] MEDS ORDERED: ACETAMINOPHEN/HYDROcodone 325 MG/5 MG TAB PO ONE (03:30)
[2017-09-02 03:32] LABS: PROTHROMBIN TIME - PATIENT 10.3 SEC (9.8-11.6)
[2017-09-02 03:36] LABS: ALT (GPT) 18 U/L (12-78); AST (GOT) 15 U/L (15-37); BICARBONATE 28.2 MEQ/L (21.0-32.0); BLOOD UREA NITROGEN 12 MG/DL (7-18); CALCIUM 8.8 MG/DL (8.5-10.1); CHLORIDE 105 MEQ/L (98-107); CREATININE 0.91 MG/DL (0.60-1.30); GLOMERULAR FILTRATION RATE 103 ML/MIN (>89); GLUCOSE,RANDOM 102 MG/DL (74-106); SODIUM (NA) 142 MEQ/L (136-145)
[2017-09-02 03:46] LABS: ALKALINE PHOSPHATASE 81 U/L (45-117); TOTAL BILIRUBIN ADULT 0.5 MG/DL (0.2-1.0); TOTAL PROTEIN 7.8 GM/DL (6.4-8.2); TROPONIN I LESS THAN 0.02 NG/ML (0.02-0.05)
[2017-09-02 04:06] LABS: NEUTROPHIL # MANUAL DIFF 7.7 TH/MM3 (1.8-7.7); POLYS (SEG NEUTROPHILS) 10 % (16-70)
[2017-09-02 04:07] LABS: LYMPHOCYTES 89 % (9-44)
[2017-09-02 04:12] LABS: SMUDGE CELLS PRESENT PRESENT
--- NOTE | 2017-09-02 20:28 | EKG ---
Date Performed: 09/02/2017 Time Performed: 03:02:20 PTAGE: 62 years EKG: Sinus rhythm SEPTAL MYOCARDIAL INFARCTION ABNORMAL ECG PREVIOUS TRACING : 08/26/2015 22.36 Since the previous tracing, no significant change noted DOCTOR: Stewart Scott Interpretating Date/Time 09/02/2017 20:26:49
== END 2017-09-02 05:50 | disposition home or self-care (01) ==
LOC: NED 19:51 → NEPE 09-02 05:50
DX: C91.10 Chronic lymphocytic leukemia of B-cell type not having achieved remission (principal); E11.649 Type 2 diabetes mellitus with hypoglycemia without coma; E11.22 Type 2 diabetes mellitus with diabetic chronic kidney disease; E78.5 Hyperlipidemia, unspecified; I12.9 Hypertensive chronic kidney disease with stage 1 through stage 4 chronic kidney disease, or unspecified chronic kidney disease; N18.9 Chronic kidney disease, unspecified; M10.9 Gout, unspecified; R94.31 Abnormal electrocardiogram [ECG] [EKG]; Z79.84 Long term (current) use of oral hypoglycemic drugs; Z87.891 Personal history of nicotine dependence
CPT/HCPCS: 71045; 80053; 81001; 82550; 82552; 83690; 83880; 84443; 84484; 85007; 85027; 85610; 85730; 93005

== ENCOUNTER 2018-03-27 20:20 | Observation (INO) ==
[2018-03-27] MEDS ORDERED: Morphine Inj 4 MG/ML Vial IV.PUSH ONE (20:59)
--- NOTE | 2018-03-27 21:25 | ED ---
HPI General Chief Complaint: Abdominal Pain Stated Complaint: SOB/abdominal pain/cancer pt Time Seen by Provider: 03/27/18 20:53 Source: patient Mode of arrival: ambulatory Limitations: no limitations History of Present Illness HPI narrative: 62-year-old male the presents to the ED for evaluation of abdominal pain. Patient states that his abdominal pain for 3 days. Per patient about 3 days ago he was started on a new chemotherapy which is oral called Ibrutinib. Per patient ever since he has been having symptoms. Per patient and actually vomited but feels like he has gas. Per patient has a history of chronic back problems and takes Lortab for pain with minimal relief. Per patient the pain seems to start in the mid epigastric area and goes around like a band on to his back. Per patient he is never had pain like this before. He states that his gallbladder was taken out. He denies any other new medications. No think that could cause this. No diarrhea. No nausea or vomiting. Per patient the pain feels more like gas that is stuck on his abdomen. He has been taking [id number] remedies with some relief. He denies any chest pain or shortness of breath. No bleeding of any kind. No urinary issues. Related Data Allergies Allergy/AdvReac Type Severity Reaction Status Date / Time No Known Allergies Allergy Uncoded 09/28/16 09:07 Review of Systems ROS: all other systems reviewed are negative [facility] Medical History Medical History Constipation (Acute) Diabetes (Acute) GERD (gastroesophageal reflux disease) (Acute) Hypertension (Acute) Social History Social History Substance History: No History of Abuse Second Hand Smoke Exposure: No Smoking Status: Never smoker How Often Do You Have a Drink Containing Alcohol: Never Recent Travel in [facility] within the Last 8 Weeks: No Recent Out of Country Travel within the Last 8 Weeks: No Immunization History Tetanus Immunization: Unsure Exam Narrative Exam Narrative: GENERAL: Well appearing. Overweight SKIN: Focused skin assessment warm/dry. HEAD: Atraumatic. Normocephalic. EYES: Pupils equal and round. No scleral icterus. No injection or drainage. ENT: No nasal bleeding or discharge. Mucous membranes pink and moist. Tongue is midline. No uvula deviation. NECK: Trachea midline. No JVD. CARDIOVASCULAR: Regular rate and rhythm. No murmur appreciated. RESPIRATORY: No accessory muscle use. Clear to auscultation. Breath sounds equal bilaterally. GASTROINTESTINAL: Abdomen soft, Tender to touch on the upper abdomen, nondistended. Hepatic and splenic margins not palpable. MUSCULOSKELETAL: No obvious deformities. No clubbing. No cyanosis. No edema. NEUROLOGICAL: Awake and alert. No obvious cranial nerve deficits. Motor grossly within normal limits. Normal speech. PSYCHIATRIC: Appropriate mood and affect; insight and judgment normal. Course Initial Documented Vital Signs Temperature 97.8 F 03/27/18 20:32 Pulse Rate 87 03/27/18 20:32 Respiratory Rate 18 03/27/18 20:32 Blood Pressure 142/63 H 03/27/18 20:32 Pulse Oximetry 96 03/27/18 20:32 Last Documented Vital Signs Temperature 98.2 F 03/28/18 04:00 Pulse Rate 65 03/28/18 04:00 Respiratory Rate 18 03/28/18 04:00 Blood Pressure 136/65 03/28/18 04:00 Pulse Oximetry 96 03/28/18 04:00 Medical Decision Making REYNA Attestation REYNA supervised visit: Yes Attestation: 62-year-old male came to the emergency room with history of epigastric pain. 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 Patient also has history of diabetes. Patient was seen by my PA and I am supervising him. I reviewed all his workup. Patient's white blood cell is significantly elevated secondary to the CML. He also has risk factor for coronary artery disease including his age, - [place] descent and diabetes. The possibility of coronary artery disease could not be ruled out yet and hence patient was recommended to be admitted for observation to rule out coronary artery disease. Patient understands this and is agreeable with the plan. He appeared to be comfortable otherwise. Patient is obese with 1+ pitting edema. The abdomen is distended but nontender. I had reviewed the twelve-lead EKG. MDM Narrative Medical decision making narrative: 62-year-old male the presents to the ED for evaluation of epigastric pain. Patient was properly examined and was found to have signs and symptoms consistent with appears to be epigastric pain. Unclear etiology at this time. Could be related to the medication. Did look a the side effects of this medication and apparently can cause nausea, stomatitis as well as abdominal pain 24% of the cases. Most of the pain appears to be in the upper abdomen per the side effect profile in the up-to-date. At this time I recommend labs and imaging to rule out any sign of anything else. Patient was given antiemetics and pain medication IV. Labs and imaging showed no sign of acute disease alert and what appears to be a high white blood cell count. Patient has 170,000 white blood cells. This has increased from last week when he was 100,000. Per patient he is compliant with the new medication. Case was discussed with my attending Dr Figueroa who states that unfortunately cannot completely rule out this is not cardiac in nature and recommends admission for further evaluation and treatment. Case was discussed with Dr. Figueroa agrees with this. Patient was given aspirin. Medical Screen Exam Complete: Yes Emergency Medical Condition: Yes Differential Diagnosis Differential Diagnosis: Acute abdomen versus medication side effect versus epigastric pain versus gastritis Medical Records Medical records reviewed: Yes I reviewed the patient's medical records. Lab Data Lab results reviewed: Yes I reviewed the patient's lab results. Result diagrams: 03/27/18 21:25 03/27/18 21:25 Lab Results 03/27/18 03/27/18 03/27/18 Range/Units 21:25 21:25 21:25 WBC 170.0 H (4.0-11.0) th/mm3 RBC 3.71 L (4.50-5.90) mil/mm3 Hgb 12.0 L (13.0-17.0) gm/dL Hct 36.7 L (39.0-51.0) % MCV 98.9 (80.0-100.0) fL MCH 32.4 (27.0-34.0) pg MCHC 32.8 (32.0-36.0) % RDW 13.8 (11.6-17.2) % Plt Count 177 (150-450) th/mm3 MPV 8.9 (7.0-11.0) fL Prelim Diff (Auto) Manual diff required WBC Differential Manual diff final Seg Neuts % (Manual) 5 L (16-70) % Lymphocytes % (Manual) 94 H (9-44) % Monocytes % (Manual) 1 (0-8) % Abs Neuts (Manual) 8.5 H (1.8-7.7) th/mm3 Differential Comment . Smudge Cells Present H (None) Platelet Estimate Normal (Normal) Platelet Morphology Normal (Normal) RBC Morphology Normal (Normal) Sodium 136 (136-145) meq/L Potassium 4.2 (3.5-5.1) meq/L Chloride 99 (98-107) meq/L Carbon Dioxide 29.8 (21.0-32.0) meq/L Anion Gap 7 (5-15) meq/L BUN 16 (7-18) mg/dL Creatinine 1.13 (0.60-1.30) mg/dL Estimated GFR 80 L (>89) mL/min Random Glucose 112 H (74-106) mg/dL Lactic Acid 1.0 (0.4-2.0) mmol/L Uric Acid (2.6-7.2) mg/dl Calcium 9.0 (8.5-10.1) mg/dL Total Bilirubin 0.6 (0.2-1.0) mg/dL AST 15 (15-37) U/L ALT 19 (12-78) U/L Alkaline Phosphatase 95 (45-117) U/L Troponin I Less than 0.02 L (0.02-0.05) ng/mL Total Protein 7.9 (6.4-8.2) g/dL Albumin 4.0 (3.4-5.0) g/dL Lipase 284 (73-393) U/L Urine Color (Yellw/Straw) Urine Clarity (Clear) Urine pH (5.0-8.5) Ur Specific [place] (1.002-1.035) Urine Protein (Neg-Trace) mg/dL Urine Glucose (UA) (Negative) mg/dL Urine Ketones (Negative) mg/dL Urine Occult Blood (Negative) Urine Nitrate (Negative) Urine Bilirubin (Negative) Urine Urobilinogen (Less than 2) mg/dL Ur Leukocyte Esterase (Negative) Urine RBC (0-3) /hpf Urine WBC (0-5) /hpf Micro UA Comment Ur Microscopic Review Urine Culture Comments 03/27/18 03/28/18 Range/Units 22:02 00:34 WBC (4.0-11.0) th/mm3 RBC (4.50-5.90) mil/mm3 Hgb (13.0-17.0) gm/dL Hct (39.0-51.0) % MCV (80.0-100.0) fL MCH (27.0-34.0) pg MCHC (32.0-36.0) % RDW (11.6-17.2) % Plt Count (150-450) th/mm3 MPV (7.0-11.0) fL Prelim Diff (Auto) WBC Differential Seg Neuts % (Manual) (16-70) % Lymphocytes % (Manual) (9-44) % Monocytes % (Manual) (0-8) % Abs Neuts (Manual) (1.8-7.7) th/mm3 Differential Comment Smudge Cells (None) Platelet Estimate (Normal) Platelet Morphology (Normal) RBC Morphology (Normal) Sodium (136-145) meq/L Potassium (3.5-5.1) meq/L Chloride (98-107) meq/L Carbon Dioxide (21.0-32.0) meq/L Anion Gap (5-15) meq/L BUN (7-18) mg/dL Creatinine (0.60-1.30) mg/dL Estimated GFR (>89) mL/min Random Glucose (74-106) mg/dL Lactic Acid (0.4-2.0) mmol/L Uric Acid 7.3 H (2.6-7.2) mg/dl Calcium (8.5-10.1) mg/dL Total Bilirubin (0.2-1.0) mg/dL AST (15-37) U/L ALT (12-78) U/L Alkaline Phosphatase (45-117) U/L Troponin I Less than 0.02 L (0.02-0.05) ng/mL Total Protein (6.4-8.2) g/dL Albumin (3.4-5.0) g/dL Lipase (73-393) U/L Urine Color Straw (Yellw/Straw) Urine Clarity Clear (Clear) Urine pH 6.0 (5.0-8.5) Ur Specific [place] 1.003 (1.002-1.035) Urine Protein Negative (Neg-Trace) mg/dL Urine Glucose (UA) Negative (Negative) mg/dL Urine Ketones Negative (Negative) mg/dL Urine Occult Blood Negative (Negative) Urine Nitrate Negative (Negative) Urine Bilirubin Negative (Negative) Urine Urobilinogen Less than 2 (Less than 2) mg/dL Ur Leukocyte Esterase Negative (Negative) Urine RBC Less than 1 (0-3) /hpf Urine WBC Less than 1 (0-5) /hpf Micro UA Comment Culture not ind Ur Microscopic Review Not Reportable Urine Culture Comments Culture not ind Imaging Data Attestation: I personally reviewed and interpreted this imaging study as follows : Radiologist's impression: Abdomen/Pelvis CT 03/27/18 20:59 CONCLUSION: 1. No acute findings in the abdomen and pelvis. 2. Status post cholecystectomy. 3. Diffuse atherosclerotic disease. ECG Data Attestation: I personally reviewed and interpreted this ECG as follows: Interpretation: EKG shows sinus rhythm with no sign of acute ischemia and arrhythmia. Discharge Plan Discharge Disposition Patient Disposition: 30 Still Patient Discharge Details Diagnosis: Chest pain, CML (chronic myeloid leukemia) Physicians Team ED Provider: Desiree Weaver ED Midlevel Provider: Gavino Cleaning Primary Care Provider: NON STAFF,PROVIDER Attending Provider: Eelnita Lozada Other Providers: Brian Aguilar ; [employer] Status ED Status: Left Department Discharge Information Discharge Date/Time: 03/28/18 01:33
[2018-03-27 22:03] LABS: Hematocrit 36.7 % (39.0-51.0); Mean Corpuscular HGB Conc 32.8 % (32.0-36.0); Mean Corpuscular Hemoglobin 32.4 pg (27.0-34.0); Mean Corpuscular Volume 98.9 fL (80.0-100.0); Mean Platelet Volume 8.9 fL (7.0-11.0); Platelet Count 177 th/mm3 (150-450); Red Blood Count 3.71 mil/mm3 (4.50-5.90); Red Cell Distribution Width 13.8 % (11.6-17.2)
--- NOTE | 2018-03-27 22:03 | CT ---
EXAM DATE: 03/27/2018 9:06 PM EDT AGE/SEX: 62 years / Male INDICATIONS: Abdominal pain and nausea. CLINICAL DATA: This is the patient's initial encounter. Patient reports that signs and symptoms have been present for 3 days and indicates a pain score of 5/10. MEDICAL/SURGICAL HISTORY: Diabetes. Gastroesophageal reflux disease. Hypertension. CLL None . ORAL CONTRAST: No oral contrast ingested. RADIATION DOSE: 16.72 CTDI (mGy) COMPARISON: [facility], CT ABDOMEN AND PELVIS W/ CONTRAST, 04/03/2017. . TECHNIQUE: Multiple contiguous axial images were obtained through the abdomen and pelvis following b olus infusion of 97 ml Omnipaque 350 (iohexol) nonionic water-soluble contrast as a single exam dos e. No oral contrast ingested. Using automated exposure control and adjustment of the mA and/or kV ac cording to patient size, radiation dose was kept as low as reasonably achievable to obtain optimal di agnostic quality images. DICOM format image data is available electronically for review and comparis on. FINDINGS: Lower Lungs: The visualized lower lungs are clear. Liver: Liver is within normal limits. Cholecystectomy clips noted. Spleen: Homogeneous density without enlargement. Pancreas: Unremarkable without mass or calcification. Kidneys: Normal in size and shape. No evidence of mass or hydronephrosis. Adrenal Glands: Unremarkable. Aorta: Diffuse atherosclerotic disease. Bowel/Mesentery: No evidence of bowel dilatation. No free air or free fluid. Appendix not identified . Several subcentimeter, likely reactive mesenteric lymph nodes are seen in the right lower quadrant adjacent to the cecum. These were also present on the prior study of 2017. Abdominal Wall: Intact. Retroperitoneum: No evidence of adenopathy in the retrocrural, para-aortic, or deep pelvic regions. Bladder: Contours are smooth. Reproductive Organs: Penile prosthesis in place. Inguinal: The inguinal region is unremarkable without evidence of adenopathy. Bony Structures: Postsurgical findings lumbar spine. CONCLUSION: 1. No acute findings in the abdomen and pelvis. 2. Status post cholecystectomy. 3. Diffuse atherosclerotic disease. Electronically signed by: Carlos King MD 03/27/2018 10:01 PM EDT
[2018-03-27 22:14] LABS: Bilirubin,Urine Negative (Negative); Clarity,Urine Clear (Clear); Color,Urine Straw (Yellw/Straw); Glucose,Urine (UA) Negative (Negative); Leukocyte Esterase,Urine Negative (Negative); Nitrite,Urine Negative (Negative); Specific Gravity,Urine 1.003 (1.002-1.035)
[2018-03-27 22:27] LABS: Alanine Aminotransferase 19 U/L (12-78); Alkaline Phosphatase 95 U/L (45-117); Anion Gap 7 meq/L (5-15); Aspartate Aminotransferase 15 U/L (15-37); Blood Urea Nitrogen 16 mg/dL (7-18); Carbon Dioxide 29.8 meq/L (21.0-32.0); Chloride 99 meq/L (98-107); Glomerular Filtration Rate 80 mL/min (>89); Glucose,Random 112 mg/dL (74-106); Lipase 284 U/L (73-393); Potassium 4.2 meq/L (3.5-5.1); Sodium 136 meq/L (136-145); Total Protein 7.9 g/dL (6.4-8.2)
[2018-03-27 22:36] LABS: Lymphocytes 94 % (9-44); Monocytes 1 % (0-8); Platelet Estimate Normal (Normal); Platelet Morphology Normal (Normal); Smudge Cells Present
[2018-03-27 22:37] LABS: RBC Morphology Normal (Normal)
[2018-03-27] MEDS ORDERED: Famotidine PF Inj 20 MG/2 ML Vial IV.PUSH ONE (23:01)
[2018-03-27] MEDS ORDERED: Aspirin 325 MG Tablet PO ONE (23:01)
[2018-03-27] MEDS ORDERED: Bisacodyl 10 MG Supp RECTAL PRN (23:04)
[2018-03-27] MEDS ORDERED: Acetaminophen 325 MG Tablet PO PRN (23:04)
--- NOTE | 2018-03-27 23:09 | P.HPIM ---
History of Present Illness Primary Care Physician: PROVIDER NON STAFF History of Present Illness: This is a 62-year-old male with a PMH of HTN, Hyperlipidemia and CLL who presented to ER with complaints of abdominal pain x3 days. Follows w/ Dr. Aguilar as outpatient, on Ibrutinib, recently seen in office by Dr. Aguilar for follow up on 03/24/18, WBC 145 at that time, plan to continue Ibrutinib and Allopurinol. Today pt reports generalized lower abdominal pain w/ cramping and associated gas , no nausea, vomiting or diarrhea. Denies fever or chills. Denies chest pain. On arrival, BP 142/63, HR 87, O2 sat 96% on RA, Afebrile. WBC 170, previously 145 on 03/24/2018. Chemistry unremarkable. Lactic Acid normal. Troponin negative. UA negative for UTI. CT Abdomen/Pelvis no acute findings. - Diagnosis (1) Abdominal pain (2) CML (chronic myeloid leukemia) (3) DM (diabetes mellitus) Review of Systems PAST FAMILY HISTORY: Reviewed, positive for DM All other systems reviewed negative except as stated in HPI PMFSH - History History Provided By: Patient - Medical History Medical History: Medical History (Last Reviewed 03/27/18 @ 21:24 by VAUGHN Heath) Constipation Diabetes GERD (gastroesophageal reflux disease) Hypertension - Tobacco History Smoking Status: Never smoker - Alcohol History How Often Do You Have a Drink Containing Alcohol: Never - Substance Use History Substance History: No History of Abuse - Travel History Recent Travel in the [place] Within the Last 8 Weeks: No Recent Travel Out of the Country Within the Last 8 Weeks: No - Immunization History Tetanus Immunization: Unsure Medications and Allergies Active Medications: Active Medications Acetaminophen (Tylenol) 650 mg PO Q4H PRN PRN Reason: Temp > 100.4 Al Hydroxide/Mg Hydroxide (Milk Of Magnesia Liq) 30 ml PO Q12H PRN PRN Reason: Mild Constipation Bisacodyl (Dulcolax Supp) 10 mg RECTAL DAILY PRN PRN Reason: SEVERE CONSITIPATION Sodium Chloride (Ns Inj) 1,000 mls @ 100 mls/hr IV.CONT .Q10H GONZALO Lactulose (Lactulose Liq) 30 ml PO DAILY PRN PRN Reason: SEVERE CONSITIPATION Morphine Sulfate (Morphine Inj) 2 mg IV.PUSH Q4H PRN PRN Reason: PAIN 6-10 Ondansetron HCl (Zofran Inj) 4 mg IV.PUSH Q6H PRN PRN Reason: NAUSEA OR VOMITING Senna/Docusate Sodium (Sayra-Colace) 1 tab PO BID GONZALO Sennosides (Senokot) 17.2 mg PO Q12H PRN PRN Reason: Moderate Constipation Allergies Allergy/AdvReac Type Severity Reaction Status Date / Time No Known Allergies Allergy Uncoded 09/28/16 09:07 Exam Vital signs: Vital Signs 03/27/18 20:32 Temperature 97.8 F Pulse Rate 87 Respiratory Rate 18 Blood Pressure 142/63 H Pulse Oximetry 96 Intake & Output 03/27/18 03/27/18 03/28/18 06:59 18:59 06:59 Weight 90.718 kg Narrative: PE: GENERAL: Very pleasant middle-aged black male in no acute distress, mildly uncomfortable due to abdominal pain. SKIN: Focused skin assessment warm and dry. HEENT: PERRLA, EOMI. No scleral icterus or conjunctival pallor. No lid lag or facial droop. CARDIOVASCULAR: Regular rate and rhythm. No obvious murmurs to auscultation. No chest tenderness to palpation. RESPIRATORY: No obvious rhonchi or wheezing. Clear to auscultation. Breath sounds equal bilaterally. GASTROINTESTINAL: Abdomen soft, generalized tenderness to palpation, nondistended. BS normal. MUSCULOSKELETAL: Extremities without clubbing, cyanosis, or edema. No obvious deformities. NEUROLOGICAL: Awake, alert and oriented x4. No focal neurologic deficits. Moving both upper and lower extremities spontaneously. PSYCHIATRIC: Appropriate mood and affect. Insight and judgment normal. Results - Labs CBC & Chem 7: 03/27/18 21:25 03/27/18 21:25 Labs: Short CBC 03/27/18 Range/Units 21:25 WBC 170.0 H (4.0-11.0) th/mm3 Hgb 12.0 L (13.0-17.0) gm/dL Hct 36.7 L (39.0-51.0) % Plt Count 177 (150-450) th/mm3 [facility] 03/27/18 21:25 Sodium 136 Potassium 4.2 Chloride 99 Carbon Dioxide 29.8 BUN 16 Creatinine 1.13 Calcium 9.0 Cardiac Enzymes 03/27/18 Range/Units 21:25 Troponin I Less than 0.02 L (0.02-0.05) ng/mL Liver Function 03/27/18 Range/Units 21:25 Total Bilirubin 0.6 (0.2-1.0) mg/dL AST 15 (15-37) U/L ALT 19 (12-78) U/L Alkaline Phosphatase 95 (45-117) U/L Albumin 4.0 (3.4-5.0) g/dL Urine 03/27/18 Range/Units 22:02 Urine Color Straw (Yellw/Straw) Urine Clarity Clear (Clear) Urine pH 6.0 (5.0-8.5) Ur Specific [place] 1.003 (1.002-1.035) Urine Protein Negative (Neg-Trace) mg/dL Urine Glucose (UA) Negative (Negative) mg/dL - Imaging Impressions Abdomen/Pelvis CT 03/27/18 20:59 CONCLUSION: 1. No acute findings in the abdomen and pelvis. 2. Status post cholecystectomy. 3. Diffuse atherosclerotic disease. Caprini VTE Risk Assessment Caprini VTE Risk Assessment: No/Low Risk (score <= 1) Caprini Risk Assessment Model: Point Value = 1 Point Value = 2 Point Value = 3 Point Value = 5 Age 41-60 Minor surgery BMI > 25 kg/m2 Swollen legs Varicose veins or History of unexplained or recurrent spontaneous Oral contraceptives or hormone replacement Sepsis (< 1 month) Serious lung disease, including pneumonia (< 1 month) Abnormal pulmonary function Acute myocardial infarction Congestive heart failure (< 1 month) History of inflammatory bowel disease Medical patient at bed rest Age 61-74 Arthroscopic surgery Major open surgery (> 45 min) Laparoscopic surgery (> 45 min) Malignancy Confined to bed (> 72 hours) Immobilizing plaster cast Central venous access Age >= 75 History of VTE Family history of VTE Factor V Leiden Prothrombin [id number] Lupus anticoagulant Anticardiolipin antibodies Elevated serum homocysteine Heparin-induced thrombocytopenia Other congenital or acquired thrombophilia Stroke (< 1 month) Elective arthroplasty Hip, pelvis, or leg fracture Acute spinal cord injury (< 1 month) Prophylaxis Regimen: Total Risk Factor Score Risk Level Prophylaxis Regimen 0-1 Low Early ambulation 2 Moderate Order ONE of the following: *Sequential Compression Device (SCD) *Heparin 5000 units SQ BID 3-4 Higher Order ONE of the following medications: *Heparin 5000 units SQ TID *Enoxaparin/Lovenox 40 mg SQ daily (WT < 150 kg, CrCl > 30 mL/min) *Enoxaparin/Lovenox 30 mg SQ daily (WT < 150 kg, CrCl > 10-29 mL/min) *Enoxaparin/Lovenox 30 mg SQ BID (WT < 150 kg, CrCl > 30 mL/min) AND/OR *Sequential Compression Device (SCD) 5 or more Highest Order ONE of the following medications: *Heparin 5000 units SQ TID (Preferred with Epidurals) *Enoxaparin/Lovenox 40 mg SQ daily (WT < 150 kg, CrCl > 30 mL/min) *Enoxaparin/Lovenox 30 mg SQ daily (WT < 150 kg, CrCl > 10-29 mL/min) *Enoxaparin/Lovenox 30 mg SQ BID (WT < 150 kg, CrCl > 30 mL/min) AND *Sequential Compression Device (SCD) Assessment and Plan - Assessment (1) Abdominal pain Code(s): R10.9 - Unspecified abdominal pain Status: Acute (2) CML (chronic myeloid leukemia) Code(s): C92.10 - Chronic myeloid leukemia, BCR/ABL-positive, not having achieved remission Status: Acute (3) DM (diabetes mellitus) Code(s): E11.9 - Type 2 diabetes mellitus without complications Status: Acute - Plan A/P: 1. Abdominal Pain: acute onset abdominal pain w/ cramping, no nausea/vomiting or diarrhea, possibly related to Chemo. CT Abd/Pelvis w/ no acute findings, images reviewed. Lipase normal. Protonix IV, analgesics/antiemetics as needed. 2. CLL: Follows w/ Dr. Aguilar, currently on tx w/ Ibrutinib and Allopurinol, seen in office on 03/24/18, will consult for further evaluation, check Uric Acid level. 3. DM: Sliding scale w/ Accu-cheks. 4. DVT Prophylaxis: SCD/Teds 5. Social work for d/c planning as needed 6. Case discussed w/ ER physician at length, labs/records/imaging reviewed by me.
[2018-03-27] MEDS ORDERED: Dextrose 50% in Water 50 ML Vial IV.PUSH PRN (23:39)
[2018-03-27] MEDS: Sod Chloride 0.9% Inj 1,000 ML IV.CONT SCH (23:39)
[2018-03-27] MEDS: Morphine Sulfate Inj 2 MG/ML Vial IV.PUSH PRN (23:40)
[2018-03-28] MEDS: Pantoprazole Inj 40 MG Vial IV.PUSH SCH ×2 (00:30→13:00)
[2018-03-28 01:12] LABS: Uric Acid 7.3 mg/dl (2.6-7.2)
[2018-03-28] MEDS: Morphine Sulfate Inj 2 MG/ML Vial IV.PUSH PRN ×3 (03:42→13:05)
[2018-03-28 04:33] VITALS: RESP 18
[2018-03-28] MEDS: Insulin NovoLOG Aspart Correctional Sugar Inj SQ SCH ×3 (07:50→17:39)
[2018-03-28] MEDS ORDERED: Senna/Docusate Sodium 8.6/50 MG Tablet PO SCH (09:00)
[2018-03-28] MEDS: Sod Chloride 0.9% Inj 1,000 ML IV.CONT SCH (09:16)
[2018-03-28 09:44] LABS: Hematocrit 38.7 % (39.0-51.0); Hemoglobin 12.8 gm/dL (13.0-17.0); Mean Corpuscular Hemoglobin 32.8 pg (27.0-34.0); Mean Corpuscular Volume 99.3 fL (80.0-100.0); Mean Platelet Volume 8.7 fL (7.0-11.0); Platelet Count 167 th/mm3 (150-450); Red Cell Distribution Width 14.1 % (11.6-17.2); White Blood Count 153.9 th/mm3 (4.0-11.0)
[2018-03-28 10:06] LABS: Albumin 4.1 g/dL (3.4-5.0); Anion Gap 7 meq/L (5-15); Aspartate Aminotransferase 15 U/L (15-37); Blood Urea Nitrogen 13 mg/dL (7-18); Calcium 9.3 mg/dL (8.5-10.1); Carbon Dioxide 29.6 meq/L (21.0-32.0); Chloride 103 meq/L (98-107); Glomerular Filtration Rate 85 mL/min (>89); Glucose,Random 110 mg/dL (74-106); Sodium 140 meq/L (136-145)
[2018-03-28 10:08] LABS: Alanine Aminotransferase 22 U/L (12-78)
[2018-03-28 10:11] LABS: Alkaline Phosphatase 106 U/L (45-117); Total Protein 8.1 g/dL (6.4-8.2)
[2018-03-28 10:20] LABS: Monocytes 1 % (0-8)
[2018-03-28 10:21] LABS: Lymphocytes 92 % (9-44); Platelet Estimate Normal (Normal); Platelet Morphology Normal (Normal); Smudge Cells Present
--- NOTE | 2018-03-28 14:12 | MB ---
cc: Brian Aguilar MD DATE: 03/28/2018 ATTENDING PHYSICIAN: Mitra Figueroa MD REASON FOR CONSULTATION: Hematology consult to render an opinion on patient with chronic lymphocytic leukemia admitted with abdominal pain. HISTORY OF PRESENT ILLNESS: The patient is a pleasant 62-year-old male with long history of chronic lymphocytic leukemia. He recently developed progression of disease and started ibrutinib last week. He started experiencing diffuse abdominal crampy pain and bloating about 3 days ago. He has mild nausea without vomiting. The pain progressively worsened. He came to the emergency room. He denies any diarrhea. He has no fever or chills. He has no chest pain. He denies any shortness of breath or cough. He denies any melena or hematochezia. He has no dysuria or hematuria. He stated he had also been taking allopurinol. When I saw him this morning, he stated that the pain has resolved. He wants to go home. PAST MEDICAL HISTORY: Chronic lymphocytic leukemia, hypertension, hyperlipidemia, diabetes mellitus, gastroesophageal reflux disease, chronic obstructive pulmonary disease, chronic kidney disease. PAST SURGICAL HISTORY: Cholecystectomy, appendectomy, back surgery, hernia repair, penile implant, port placement, colonoscopy in 2017. FAMILY HISTORY: No leukemia. SOCIAL HISTORY: Quit tobacco 15 years ago. He has about 45-year pack year of smoking history. He has no alcohol abuse. ALLERGIES: NO KNOWN DRUG ALLERGIES. CURRENT MEDICATIONS: 1. Ibrutinib, took the last dose yesterday afternoon. 2. Insulin. 3. Protonix. 4. Sayra-Colace. REVIEW OF SYSTEMS: CONSTITUTIONAL: Negative. EYE: Negative. ENT: Negative. CARDIOVASCULAR: No chest pressure or palpitation. RESPIRATORY: No shortness of breath, cough. GI: As above. : Negative. MUSCULOSKELETAL: Negative. ENDOCRINE: Negative. HEMATOLOGIC: As above. PSYCHIATRIC: Negative. NEUROLOGIC: Negative. DERMATOLOGY: Negative. PHYSICAL EXAMINATION: VITAL SIGNS: Temperature 98.3, blood pressure 159/92, O2 saturation 95%. GENERAL: He is alert and oriented x3, no acute distress. He is ambulating around the hallway. HEENT: Atraumatic, normocephalic. Pupils are equal, round, reactive to light. Extraocular muscles are intact. No scleral icterus. Oropharynx dry mucosa. No lesion. No thrush or mucositis. NECK: No thyromegaly. No palpable mass. LYMPHATIC: No palpable cervical, clavicular, axillary lymph nodes. CARDIOVASCULAR: Regular S1, S2. No murmur. LUNGS: Clear to auscultation without wheezing or rhonchi. ABDOMEN: Soft. There is soreness in the midepigastric area but no significant pain. No left upper quadrant tenderness. Difficult to palpate the spleen. EXTREMITIES: No cyanosis, clubbing, or edema. No calf tenderness. BACK: No paravertebral tenderness. SKIN: No rash or petechiae. NEUROLOGIC: Nonfocal. LABORATORY DATA: WBC 153, hemoglobin 12.8, platelet count 167. Creatinine 1.07. Liver transaminase within normal limits. Lipase normal. ASSESSMENT: 1. Chronic lymphocytic leukemia diagnosed in 2010. 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 His white blood cell count trended up to 300,000 back in 05/2014. He was treated with Rituxan and fludarabine which he completed in 03/2015. He recently developed worsening leukocytosis with doubling time of less than 6 months. He just started on ibrutinib last week. He also has adenopathy in the neck, thorax, abdomen, and pelvis. However, since starting on ibrutinib the lymph node is hardly palpable. I could not palpate the spleen either. He appeared to have good response to the ibrutinib. His white blood cell count trended up to 170,000 which is likely due to ibrutinib. I anticipate the white blood cell count to trend down once he stays on the ibrutinib for a while. He has no evidence of tumor lysis syndrome. 2. Abdominal pain, mostly in the midepigastric area. This could be gastritis. However, ibrutinib can also cause abdominal pain. The patient was started on Protonix. His pain is significantly improved this morning. He has no nausea or vomiting. He is eating well. 3. Diffuse adenopathy in the neck, mediastinum, bilateral axilla, periportal, retroperitoneal, bilateral iliac, and bilateral inguinal area noted on last CT scan. On presentation, he had CT abdomen and pelvis, which did not show significant retroperitoneal lymph node. There were only few subcentimeter lymph nodes in the mesentery. There was no splenomegaly noted. He appeared to have very good response to ibrutinib. 4. Chronic obstructive pulmonary disease, stable. 5. Obesity, stable. 6. Diabetes mellitus. 7. Diabetic neuropathy. 8. Chronic kidney disease. 9. Hyperuricemia, currently on allopurinol. PLAN: 1. I told the patient to hold the ibrutinib for 2 more days, and he can restart as outpatient. 1. Continue allopurinol and monitor uric acid level. 2. The patient's abdominal pain appears to have improved. He can be discharged from hematology standpoint. Follow up in clinic. Thank you, Dr. Figueroa, for asking me to see this patient. MD YEE Mann/cesar , 11:01 AM , 11:14 AM
--- NOTE | 2018-03-28 14:40 | ECG ---
Date Performed: 03/27/2018 Time Performed: 22:49:39 PTAGE: 62 years EKG: Sinus rhythm NORMAL ECG Compared to PREVIOUS TRACING , patient now has small R-wave in V2 and there is no criteria on this tr acing for septal myocardial infarction as read on previous tracing. PREVIOUS TRACIN09/02/2017 03.02 .20 DOCTOR: Corona Macias Interpretating Date/Time 03/28/2018 14:38:43
--- NOTE | 2018-03-28 15:12 | P.PNIM ---
Subjective Interval history: Patient reports he is feeling much better. His abdominal pain is resolved. No nausea or vomiting. He is eager to go home. Discussed the case with oncologist , Dr. Aguilar. Physical Exam Vital signs: Vital Signs 03/27/18 20:32 03/27/18 23:36 03/28/18 00:00 Temperature 97.8 F 98 F Pulse Rate 87 63 63 Respiratory Rate 18 20 20 Blood Pressure 142/63 H 136/59 L 136/59 L Pulse Oximetry 96 95 95 03/28/18 04:00 03/28/18 07:01 03/28/18 07:39 Temperature 98.2 F 98.3 F Pulse Rate 65 97 H 70 Respiratory Rate 18 18 Blood Pressure 136/65 159/92 H Pulse Oximetry 96 95 03/28/18 08:00 03/28/18 09:00 03/28/18 10:01 Temperature Pulse Rate 72 62 71 Respiratory Rate Blood Pressure Pulse Oximetry 03/28/18 11:00 03/28/18 11:03 03/28/18 11:45 Temperature 98.4 F Pulse Rate 64 58 L Respiratory Rate 18 Blood Pressure 165/87 H Pulse Oximetry 98 03/28/18 12:11 03/28/18 13:00 03/28/18 14:03 Temperature Pulse Rate 70 70 89 Respiratory Rate Blood Pressure Pulse Oximetry 03/28/18 15:00 Temperature Pulse Rate 68 Respiratory Rate Blood Pressure Pulse Oximetry Intake & Output 03/27/18 03/28/18 03/28/18 18:59 06:59 18:59 Intake Total 1000 / 1000 Output Total 900 / 900 Balance -900 / -900 1000 / 1000 Weight 121.5 kg Intake: IV 1000 / 1000 NS Inj 1,000 ML @ 100 mls/hr IV 1000 / 1000 .CONT .Q10H GONZALO Rx#:[id number] Output: Urine 900 / 900 Other: Date of Last Bowel Movement 03/27/18 # Bowel Movements 0 Narrative: GENERAL: Obese male, in no apparent distress. CARDIOVASCULAR: Normal rate and regular rhythm without murmurs, gallops, or rubs. RESPIRATORY: Good respiratory efforts. Breath sounds equal and clear to auscultation bilaterally. GASTROINTESTINAL: Abdomen soft, non-tender, non-distended. Normal active bowel sounds MUSCULOSKELETAL: Extremities without cyanosis, or edema. NEURO: Alert & Oriented x4 to person, place, time, situation. Moves all ext x4 PSYCH: Appropriate mood and affect. Results - Labs CBC & Chem 7: 03/28/18 09:17 03/28/18 09:17 Laboratory Results - last 24 hr 03/27/18 03/27/18 03/27/18 21:25 21:25 21:25 WBC 170.0 H RBC 3.71 L Hgb 12.0 L Hct 36.7 L MCV 98.9 MCH 32.4 MCHC 32.8 RDW 13.8 Plt Count 177 MPV 8.9 Prelim Diff (Auto) Manual diff required WBC Differential Manual diff final Seg Neuts % (Manual) 5 L Lymphocytes % (Manual) 94 H Monocytes % (Manual) 1 Abs Neuts (Manual) 8.5 H Differential Comment . Smudge Cells Present H Platelet Estimate Normal Platelet Morphology Normal RBC Morphology Normal Sodium 136 Potassium 4.2 Chloride 99 Carbon Dioxide 29.8 Anion Gap 7 BUN 16 Creatinine 1.13 Estimated GFR 80 L POC Glucose Random Glucose 112 H Lactic Acid 1.0 Uric Acid Calcium 9.0 Total Bilirubin 0.6 AST 15 ALT 19 Alkaline Phosphatase 95 Troponin I Less than 0.02 L Total Protein 7.9 Albumin 4.0 Lipase 284 Urine Color Urine Clarity Urine pH Ur Specific [place] Urine Protein Urine Glucose (UA) Urine Ketones Urine Occult Blood Urine Nitrate Urine Bilirubin Urine Urobilinogen Ur Leukocyte Esterase Urine RBC Urine WBC Micro UA Comment Ur Microscopic Review Urine Culture Comments 03/27/18 03/28/18 03/28/18 22:02 00:34 07:41 WBC RBC Hgb Hct MCV MCH MCHC RDW Plt Count MPV Prelim Diff (Auto) WBC Differential Seg Neuts % (Manual) Lymphocytes % (Manual) Monocytes % (Manual) Abs Neuts (Manual) Differential Comment Smudge Cells Platelet Estimate Platelet Morphology RBC Morphology Sodium Potassium Chloride Carbon Dioxide Anion Gap BUN Creatinine Estimated GFR POC Glucose 122 H Random Glucose Lactic Acid Uric Acid 7.3 H Calcium Total Bilirubin AST ALT Alkaline Phosphatase Troponin I Less than 0.02 L Total Protein Albumin Lipase Urine Color Straw Urine Clarity Clear Urine pH 6.0 Ur Specific [place] 1.003 Urine Protein Negative Urine Glucose (UA) Negative Urine Ketones Negative Urine Occult Blood Negative Urine Nitrate Negative Urine Bilirubin Negative Urine Urobilinogen Less than 2 Ur Leukocyte Esterase Negative Urine RBC Less than 1 Urine WBC Less than 1 Micro UA Comment Culture not ind Ur Microscopic Review Not Reportable Urine Culture Comments Culture not ind 10/14/18 10/14/18 10/14/18 09:17 09:17 11:47 WBC 153.9 H RBC 3.90 L Hgb 12.8 L Hct 38.7 L MCV 99.3 MCH 32.8 MCHC 33.0 RDW 14.1 Plt Count 167 MPV 8.7 Prelim Diff (Auto) Manual diff required WBC Differential Manual diff final Seg Neuts % (Manual) 7 L Lymphocytes % (Manual) 92 H Monocytes % (Manual) 1 Abs Neuts (Manual) 10.8 H Differential Comment . Smudge Cells Present H Platelet Estimate Normal Platelet Morphology Normal RBC Morphology Sodium 140 Potassium 4.0 Chloride 103 Carbon Dioxide 29.6 Anion Gap 7 BUN 13 Creatinine 1.07 Estimated GFR 85 L POC Glucose 149 H Random Glucose 110 H Lactic Acid Uric Acid Calcium 9.3 Total Bilirubin 0.7 AST 15 ALT 22 Alkaline Phosphatase 106 Troponin I Less than 0.02 L Total Protein 8.1 Albumin 4.1 Lipase Urine Color Urine Clarity Urine pH Ur Specific [place] Urine Protein Urine Glucose (UA) Urine Ketones Urine Occult Blood Urine Nitrate Urine Bilirubin Urine Urobilinogen Ur Leukocyte Esterase Urine RBC Urine WBC Micro UA Comment Ur Microscopic Review Urine Culture Comments - Imaging Impressions Abdomen/Pelvis CT 03/27/18 20:59 CONCLUSION: 1. No acute findings in the abdomen and pelvis. 2. Status post cholecystectomy. 3. Diffuse atherosclerotic disease. Assessment and Plan - Assessment (1) Abdominal pain Code(s): R10.9 - Unspecified abdominal pain Status: Acute (2) CML (chronic myeloid leukemia) Code(s): C92.10 - Chronic myeloid leukemia, BCR/ABL-positive, not having achieved remission Status: Acute (3) DM (diabetes mellitus) Code(s): E11.9 - Type 2 diabetes mellitus without complications Status: Acute - Plan 62-year-old male with CLL who presented with acute abdominal pain: Acute abdominal pain: CT of the abdomen unremarkable. His symptoms resolved. I discussed the case with his oncologist Dr. Terrell, gastritis versus side effect of CLL medication ibrutinib. The patient's symptoms quickly resolved. He was counseled to hold ibrutinib for a couple of days and restart outpatient. He will follow-up outpatient with oncology. The rest of the patient's chronic home medications were continued including Protonix. Discharge Planning: Discharge patient to home Condition on discharge: Improved Regular Diet as tolerated Ad Christine activity Rx written: Per med rec Follow-up with primary care physician
[2018-03-28 15:15] VITALS: BP 162/84; PULSE 84; TEMP 98; O2SAT 96
== END 2018-03-28 18:23 | disposition home or self-care (01) ==
LOC: NEDA 20:20 → NEPE 20:20 → HCIS 03-28 01:16
PROVIDERS: ADMIT Family Medicine; ATTEND Family Medicine